=== PATIENT | female | born 1985 | race Caucasian/White ===

== ENCOUNTER 2018-05-16 07:30 | Emergency (ER) | payer MEDICAID, SELFPAY ==
[2018-05-16 07:31] VITALS: BP 164/80; PULSE 97; RESP 20; TEMP 36.4; O2SAT 98; BMI 44.9
--- NOTE | 2018-05-16 08:09 | ED.DCSUM_ITS ---
- ER Visit Summary Date of Service: 05/16/18 Chief Complaint: [] Foot injury, left History of Present Illness: The patient is a 33 F [] nonspecific twisting of her left foot yesterday comes in for evaluation her only complaint is left foot pain is a prior history of right lower extremity fracture with which she believes a hugo that has not been bothering her that occurred in 2013 she is now under the care of orthopedics she has no other complaints she denies any other areas of injury or concerns Physical Examination: [] 158/80 General, no distress resting comfortably HEENT is generally unremarkable The neck is supple no adenopathy Cardiovascular, regular rate and rhythm Lungs, clear bilateral Abdomen, soft nontender Extremities, no clubbing cyanosis or edema, she has no knee tib-fib or ankle pain she has pain over the midfoot she is able dorsi and plantarflex the foot she can move her toes the skin is intact sensation is intact pulses are intact there is no specific findings related to the foot Neurologic, awake alert answering questions appropriately moving all 4 extre mities X-rays were obtained we did discuss the concept of an occult injury she is treated with nonsteroidals X-rays per radiology were negative for all again of explained to the concept of an occult injury, she is placed in a walking boot, limited to no weightbearing, crutches Naprosyn for pain she is referred to Dr. Encinas orthopedics and return for change in symptoms Test Results: [] Emergency Department Course and Treatment: [] Treatment Plan: [] Disposition: [] Home stable Impression: [] Left foot injury This note was generated with [employer] ([employer] dictation software. It may contain incorrect words, spelling, and punctuation that were not noted in review of the chart prior to signing ED Disposition - Plan for ED Patient: Chief Complaint: Lower Extremity Injury Referrals: Graeme Mclean DO [Primary Care Provider] -
[2018-05-16] MEDS: Naproxen 500 MG Tablet PO (08:10)
--- NOTE | 2018-05-16 08:11 | RAD_ITS ---
STUDY: X-RAY - LEFT FOOT CLINICAL: Female, 33 years old. Pain along the top of the foot. TECHNIQUE: 3 view(s) of the foot. COMPARISON: None. FINDINGS: There is a plantar calcaneal spur. Normal visualized subtalar, talonavicular, calcaneocuboid, tarsal and tarsometatarsal articulations. Normal metatarsi. Normal metatarsophalangeal joint of the great toe. Normal tibial and fibular sesamoid bones. Normal interphalangeal joint of the great toe. Normal phalanges of the great toe. Normal second through fifth metatarsophalangeal joints. Normal interphalangeal joints and phalanges of the lesser toes. The soft tissue structures are unremarkable. RAD/Foot min 3 Views IMPRESSION: Normal x-ray examination of the foot. Electronically Signed: Ousmane Goff MD at 8:32 EST Tel [phone], Service support ,
--- NOTE | 2018-05-16 09:58 | ED.DEP ---
ED Disposition - Plan for ED Patient: Chief Complaint: Lower Extremity Injury Instructions: ED Sprain Foot Prescriptions: Naproxen [Naprosyn] 500 mg PO BID PRN #20 tab Referrals: Graeme Mclean DO [Primary Care Provider] - Esdras Encinas DO [STAFF PHYSICIAN] -
[2018-05-16 10:28] VITALS: BP 115/67; PULSE 78; RESP 18; O2SAT 99
--- OUTSIDE RECORDS SUMMARY | 2018-07-09 07:52 | XMS RPT_ITS ---
:1985 Author Organization OHIP Care Team Providers Name Role Phone Graeme Mclean Primary Care Unavailable Gregory Vance Attending Unavailable SADE GOMES Attending Unavailable PAUL MOORE (KIRT) Referring Unavailable SADE GOMES Referring Unavailable SHERRY SEO Attending Unavailable *SELF, REFERRED Referring Unavailable UNKNOWN, PCP Primary Care Unavailable PROBLEMS PROBLEMS DATE TYPE CONDITION / CODE ATTENDING STATUS SOURCE 11/10/2017 Active Ingrowing nail / NA Active [facility] L60.0(ICD-10) [facility] [place] Rep[facility] 11/10/2017 Active Other specified NA Active [facility] symptoms and signs [facility] [place] involving the Repository circulatory and respiratory systems / R09.89(ICD-10) 11/10/2017 Active Nicotine NA Active [facility] dependence, [facility] [place] unspecified, Repository uncomplicated / F17.200(ICD-10) PROCEDURES PROCEDURES No Procedure Records FoundRESULTS RESULTS EMERGENCY DEPARTMENT Observed: 05/16/2018 Status: F Source: [place] SUMMARY 4:21 PM [facility] REPOSITORY [facility] Medical Records Department [address] [place] [address] Emergency Department Summary 05/16/18 0807 MR#: [id number] Acct: [id number] Name: MUSTAPHA FUENTES Rep #: [id number] : 1985 33 From: Gregory Vance MD PCP: Gareme Mclean DO Status: DEP ER - ER Visit Summary Date of Service: 05/16/18 Chief Complaint: [] Foot injury, left History of Present Illness: The patient is a 33 F [] nonspecific twisting of her left foot yesterday comes in for evaluation her only complaint is left foot pain is a prior history of right lower extremity fracture with which she believes a hugo that has not been bothering her that occurred in 2013 she is now under the care of orthopedics she has no other complaints she denies any other areas of injury or concerns Physical Examination: [] 158/80 General, no distress resting comfortably HEENT is generally unremarkable The neck is supple no adenopathy Cardiovascular, regular rate and rhythm Lungs, clear bilateral Abdomen, soft nontender Extremities, no clubbing cyanosis or edema, she has no knee tib-fib or ankle pain she has pain over the midfoot she is able dorsi and plantarflex the foot she can move her toes the skin is intact sensation is intact pulses are intact there is no specific findings related to the foot Neurologic, awake alert answering questions appropriately moving all 4 extremities X-rays were obtained we did discuss the concept of an occult injury she is treated with nonsteroidals X-rays per radiology were negative for all again of explained to the concept of an occult injury, she is placed in a walking boot, limited to no weightbearing, crutches Naprosyn for pain she is referred to Dr. Encinas orthopedics and return for change in symptoms Test Results: [] Emergency Department Course and Treatment: [] Treatment Plan: [] Disposition: [] Home stable Impression: [] Left foot injury This note was generated with [employer] dictation software. It may contain incorrect words, spelling, and punctuation that were not noted in review of the chart prior to signing ED Disposition - Plan for ED Patient: Chief Complaint: Lower Extremity Injury Referrals: Graeme Mclean, [Primary Care Provider] - What to do if you have Problems For any increased pain, shortness of breath, bleeding, nausea or vomiting, chest pain, or any unexpected problems, contact your Primary Care Provider. Call [facility] ([phone]) or report to the closest Emergency Room. Call 911 if necessary. 05/16/18 1621 <Electronically signed by Gregory Vance MD> Date Gregory Vance MD Cosigner Signature (If Indicated): Date CC: Graeme Mclean DO DISCHARGE INSTRUCTION Observed: 05/16/2018 Status: F Source: [place] 9:59 AM [facility] REPOSITORY [facility] Medical Records Department [address] [place] [address] Discharge Instruction 05/16/1858 MR#: [id number] Acct: [id number] Name: MUSTAPHA FUENTES Rep #: [id number] : 1985 33 From: Gregory Vance MD PCP: Graeme Mclean DO Status: REG ER ED Disposition - Plan for ED Patient: Chief Complaint: Lower Extremity Injury Instructions: ED Sprain Foot Prescriptions: Naproxen [Naprosyn] 500 mg PO BID PRN #20 tab Referrals: Graeme Mclean DO [Primary Care Provider] - Esdras Encinas DO [STAFF PHYSICIAN] - What to do if you have Problems For any increased pain, shortness of breath, bleeding, nausea or vomiting, chest pain, or any unexpected problems, contact your Primary Care Provider. Call [facility] ([phone]) or report to the closest Emergency Room. Call 911 if necessary. 05/16/18 0959 <Electronically signed by Gregory Vance MD> Date Gregory Vance MD Cosigner Signature (If Indicated): Date CC: Graeme Mclean DO FOOT MIN 3 VIEWS Observed: 05/16/2018 Status: F Source: [place] 8:05 AM [facility] REPOSITORY [facility] Imaging Services [address] [place] [address] Foot min 3 Views MR#: [id number] Acct: [id number] Name: MUSTAPHA FUENTES Rep #: [id number] : 1985 F 33 From: Ousmane Goff MD PCP: Graeme Mclean DO Status: REG ER Study: Foot min 3 Views Date of Exam: 05/16/18 Exam# [id number] Ordering Dr: Gregory Vance MD STUDY: X-RAY - LEFT FOOT CLINICAL: Female, 33 years old. Pain along the top of the foot. TECHNIQUE: 3 view(s) of the foot. COMPARISON: None. FINDINGS: There is a plantar calcaneal spur. Normal visualized subtalar, talonavicular, calcaneocuboid, tarsal and tarsometatarsal articulations. Normal metatarsi. Normal metatarsophalangeal joint of the great toe. Normal tibial and fibular sesamoid bones. Normal interphalangeal joint of the great toe. Normal phalanges of the great toe. Normal second through fifth metatarsophalangeal joints. Normal interphalangeal joints and phalanges of the lesser toes. The soft tissue structures are unremarkable. RAD/Foot min 3 Views IMPRESSION: Normal x-ray examination of the foot. Electronically Signed: Ousmane Goff MD at 8:32 EST Tel [phone], Service support , CC: MD Armaan Vance; Graeme Mclean DO Wheelage Clerk: Signed PROGRESS Observed: 10/28/2017 Status: COMPLETED Source: [place] 8:10 AM [facility] REPOSITORY HNO ID: [id number] Author: Sade Gomes Service: (none) Author Type: Physician Type: Progress Notes Filed: 10/28/2017 8:46 AM Note Text: ? Sade Gomes DPM Department of Podiatry [address] [facility] [address] Dept: [phone] Dept 10/28/2017 Initial Podiatric Office Visit: HPI: Mustapha Fuentes is a 32 year old female. Patient presents with ingrown toenail, L great toe. Patient reports tenderness/soreness to L toe to the touch that started about 2-3 weeks ago. Denies drainage and swelling. Slight redness noted. Patient was seen in UC 1 wk ago and prescribed Keflex 500 mg TID x10 days, which she reports no difference in symptoms pain. Patient reports history of ingrown toenails that she treated herself with epsom salt soaks and would trim corner with no prior complications. Patient reports hx of numbness to feet and PCP ran blood work which showed vit B def. Patient has been taking vitamins and feeling has since returned. Patient denies being diabetic. Patient smokes cigarettes, 1-2 ppd. PCP: Graeme Mclean DO No past medical history on file. Current Outpatient Prescriptions: cephALEXin (KEFLEX) 500 mg capsule Take 1 capsule by mouth three times daily for 10 days. gabapentin (NEURONTIN) 100 mg capsule Take 100 mg by mouth three times daily. NORETH A-ET ESTRA/FE FUMARATE (MICROGESTIN FE 07/03, 28, ORAL) Take by mouth. LORazepam (ATIVAN) 1 mg tablet Take 1 mg by mouth as needed. erythromycin ophthalmic ointment Use 1 application in the right eye daily at bedtime. (Patient not taking: Reported on 10/20/2017 ) amoxicillin 500 mg capsule Take 1 capsule by mouth three times daily. (Patient not taking: Reported on 10/20/2017 ) No current facility-administered medications for this visit. ALLERGIES Allergen Reactions - Codeine Itching - Vicodin [Hydrocodon* Itching No past surgical history on file. No family history on file. Social History Marital status: Spouse name: Years of education: Number of children: Social History Main Topics Smoking status: Current Every Day Smoker Packs/day: 0.00 Years: 0.00 Smokeless tobacco: Never Used REVIEW OF SYSTEMS: CONSTITUTIONAL: No fevers, chills, nightsweats, unintended weight loss HEENT: Denies frequent or severe heaches, nasal congestion/sinus symptoms, problematic allergy problems. EYES: No diplopia or blurry vision. CARDIOVASCULAR: No chest pain, dyspnea, palpitations, orthopnea, PND, ankle edema. PULM: No dyspnea, unexplained cough. GI: No dysphagia/odynophagia, problematic reflux, constipation, diarrhea, changes in stool habits, hematochezia, melena. : No new urinary complaints, including dysuria, gross hematuria or pyuria. NEURO: No new balance problems, peripheral weakness/paresthesias or numbness of concern. MUSC-SKEL: No new joint pain, swelling, or erythema. PSY: No concerns regarding depression, anxiety or panic. INTEGUMENTARY: No new skin changes (rash, new or changing mole, new growth) Physical Exam: Constitutional: Pt is a well developed 32 year old female who is alert, oriented and cooperative Eyes: Following during examination. No redness or drainage. Respiratory: RR normal and nonlabored. Even breathing. No evidence of distress or shortness of breath. Psychology: Patient is engaged during conversation. Normal affect and mood. Does not appear depressed or anxious during encounter. Vascular: Dorsalis pedis and posterior tibial pulses palpable, L Capillary Fill time < 5 seconds to digits 1-5, L Skin temperature warm to cool proximal to distal, L Hair growth decreased to digits Neurological: intact light touch/epicritic sensation Dermatological: Ingrown toenail to L hallux toenail. There is no redness noted. Mild pain with palpation. Webspaces clean and dry 1-4 b/l. Skin appears well hydrated and supple. good color, texture, turgor. Callosities absent.Open lesions absent. Musculoskeletal/Orthopaedic: Patient has pain to palpation of L hallux Foot type is neutral structurally AJ ROM is full with knee extended and flexed 1st MPJ is full when loaded and no pain or crepitus are noted with ROM. MTJ, STJ are full and free of pain and crepitus. +5/5 muscle strength dorsiflexion, plantarflexion, inversion, eversion b/l ASSESSMENT: (L60.0) Ingrown toenail (primary encounter diagnosis) Comment: Patient examined and informed of findings. Discussed thickening of L hallux toenail and no signs of major infections. Discussed options of avulsion vs matrixectomy vs monitor. Discussed risks of toenail procedure not limited to infection, pain, swelling, bleeding, painful scarring, recurrence, need for revised procedure. Patient wishes to just monitor. Plan: 1. Continue antibiotic and monitor (R09.89) Diminished pulses in lower extremity Comment: Discussed smoking and complications with circulation, especially since toes cool, if patient wishes to proceed with procedure. Discussed smoking cessation with patient Plan: 1. PVR - will call with results (F17.200) Smoker Comment: Discussed smoking cessation with patient. RTC as needed The documentation for this note was completed by Oksana Mendez Ma acting as scribe for Sade Gomes DPM. October 28, 2017 8:15 AM. I agree with the Chief Complaint, ROS, and Past Histories independently gathered by the clinical customer support advisor and the remaining scribed note accurately describes my personal service to the patient. Sade Gomes DPM CNOV Observed: 10/28/2017 Status: COMPLETED Source: [place] 7:55 AM [facility] REPOSITORY Office Visit (PODIWS) MUSTAPHA FUENTES ([id number]) 1985 F Date Time Provider Department 10/28/17 7:55 AM SADE GOMES [facility] During your visit today, we recorded the following information about you: Sade Gomes DPM 10/28/2017 8:46 AM Signed ? Sade Gomes DPM Department of Podiatry [address] [place] [address] Dept: [phone] Dept 10/28/2017 Initial Podiatric Office Visit: HPI: Mustapha Fuentes is a 32 year old female. Patient presents with ingrown toenail, L great toe. Patient reports tenderness/soreness to L toe to the touch that started about 2-3 weeks ago. Denies drainage and swelling. Slight redness noted. Patient was seen in UC 1 wk ago and prescribed Keflex 500 mg TID x10 days, which she reports no difference in symptoms pain. Patient reports history of ingrown toenails that she treated herself with epsom salt soaks and would trim corner with no prior complications. Patient reports hx of numbness to feet and PCP ran blood work which showed vit B def. Patient has been taking vitamins and feeling has since returned. Patient denies being diabetic. Patient smokes cigarettes, 1-2 ppd. PCP: Graeme Mclean DO No past medical history on file. Current Outpatient Prescriptions: cephALEXin (KEFLEX) 500 mg capsule Take 1 capsule by mouth three times daily for 10 days. gabapentin (NEURONTIN) 100 mg capsule Take 100 mg by mouth three times daily. NORETH A-ET ESTRA/FE FUMARATE (MICROGESTIN FE 07/03, , ORAL) Take by mouth. LORazepam (ATIVAN) 1 mg tablet Take 1 mg by mouth as needed. erythromycin ophthalmic ointment Use 1 application in the right eye daily at bedtime. (Patient not taking: Reported on 10/20/2017 ) amoxicillin 500 mg capsule Take 1 capsule by mouth three times daily. (Patient not taking: Reported on 10/20/2017 ) No current facility-administered medications for this visit. ALLERGIES Allergen Reactions - Codeine Itching - Vicodin [Hydrocodon* Itching No past surgical history on file. No family history on file. Social History Marital status: Spouse name: Years of education: Number of children: Social History Main Topics Smoking status: Current Every Day Smoker Packs/day: 0.00 Years: 0.00 Smokeless tobacco: Never Used REVIEW OF SYSTEMS: CONSTITUTIONAL: No fevers, chills, nightsweats, unintended weight loss HEENT: Denies frequent or severe heaches, nasal congestion/sinus symptoms, problematic allergy problems. EYES: No diplopia or blurry vision. CARDIOVASCULAR: No chest pain, dyspnea, palpitations, orthopnea, PND, ankle edema. PULM: No dyspnea, unexplained cough. GI: No dysphagia/odynophagia, problematic reflux, constipation, diarrhea, changes in stool habits, hematochezia, melena. : No new urinary complaints, including dysuria, gross hematuria or pyuria. NEURO: No new balance problems, peripheral weakness/paresthesias or numbness of concern. MUSC-SKEL: No new joint pain, swelling, or erythema. PSY: No concerns regarding depression, anxiety or panic. INTEGUMENTARY: No new skin changes (rash, new or changing mole, new growth) Physical Exam: Constitutional: Pt is a well developed 32 year old female who is alert, oriented and cooperative Eyes: Following during examination. No redness or drainage. Respiratory: RR normal and nonlabored. Even breathing. No evidence of distress or shortness of breath. Psychology: Patient is engaged during conversation. Normal affect and mood. Does not appear depressed or anxious during encounter. Vascular: Dorsalis pedis and posterior tibial pulses palpable, L Capillary Fill time < 5 seconds to digits 1-5, L Skin temperature warm to cool proximal to distal, L Hair growth decreased to digits Neurological: intact light touch/epicritic sensation Dermatological: Ingrown toenail to L hallux toenail. There is no redness noted. Mild pain with palpation. Webspaces clean and dry 1-4 b/l. Skin appears well hydrated and supple. good color, texture, turgor. Callosities absent.Open lesions absent. Musculoskeletal/Orthopaedic: Patient has pain to palpation of L hallux Foot type is neutral structurally AJ ROM is full with knee extended and flexed 1st MPJ is full when loaded and no pain or crepitus are noted with ROM. MTJ, STJ are full and free of pain and crepitus. +5/5 muscle strength dorsiflexion, plantarflexion, inversion, eversion b/l ASSESSMENT: (L60.0) Ingrown toenail (primary encounter diagnosis) Comment: Patient examined and informed of findings. Discussed thickening of L hallux toenail and no signs of major infections. Discussed options of avulsion vs matrixectomy vs monitor. Discussed risks of toenail procedure not limited to infection, pain, swelling, bleeding, painful scarring, recurrence, need for revised procedure. Patient wishes to just monitor. Plan: 1. Continue antibiotic and monitor (R09.89) Diminished pulses in lower extremity Comment: Discussed smoking and complications with circulation, especially since toes cool, if patient wishes to proceed with procedure. Discussed smoking cessation with patient Plan: 1. PVR - will call with results (F17.200) Smoker Comment: Discussed smoking cessation with patient. RTC as needed The documentation for this note was completed by Oksana Mendez Ma acting as scribe for Sade Gomes DPM. October 28, 2017 8:15 AM. I agree with the Chief Complaint, ROS, and Past Histories independently gathered by the clinical customer support advisor and the remaining scribed note accurately describes my personal service to the patient. Sade Gomes DPM Referring Provider: PAUL MOORE) [[id number]] Allergies As of Date: 10/28/2017 Noted Allergy Reaction CODEINE 05/02/2013 9 - Itching VICODIN (HYDROCODONE-ACETAMINOPHE*05/02/2013 9 - Itching Date Reviewed: 10/28/2017 Reviewed by: Oksana Mendez Ma - Fully Assessed Reason for Visit: Ingrown Nail [765] Primary Visit Diagnosis:Ingrown toenail [L60.0] Other Visit Diagnoses:Diminished pulses in lower extremity [R09.89] Smoker [F17.200] Order(s):[facility] [[id number]] Order #: [id number] FUTURE Prescriptions as of 10/28/2017 Sig: CEPHALEXIN 500 MG CAPSULE Take 1 capsule by mouth three* GABAPENTIN 100 MG CAPSULE Take 100 mg by mouth three ti* MICROGESTIN FE 07/03 (28) ORAL Take by mouth. LORAZEPAM 1 MG TABLET Take 1 mg by mouth as needed. ERYTHROMYCIN 5 MG/GRAM (0.5 %* Use 1 application in the righ* Patient not taking: Reported on 10/20/2017 AMOXICILLIN 500 MG CAPSULE Take 1 capsule by mouth three* Patient not taking: Reported on 10/20/2017 Problem List As Of Date: 10/28/2017 (None) Encounter Status:Closed by SADE GOMES DPM on 10/28/17 PROGRESS Observed: 10/20/2017 Status: COMPLETED Source: [place] 12:33 PM [facility] REPOSITORY O ID: [id number] Author: Paul Moore (Kirt) Service: (none) Author Type: Physician Blindstitch [place] Type: Progress Notes Filed: 10/20/2017 1:09 PM Note Text: Subjective HPI Pt presents with left great toenail pain. She has had an ingrown toenail for 2 weeks. It has started to get painful and she noticed redness and swelling today. No fever or chills. No injury. Review of Systems Musculoskeletal: Left great ingrown toenail No past medical history on file. Current Outpatient Prescriptions: gabapentin (NEURONTIN) 100 mg capsule Take 100 mg by mouth three times daily. Disp: Rfl: NORETH A-ET ESTRA/FE FUMARATE (MICROGESTIN FE 07/03, , ORAL) Take by mouth. Disp: Rfl: LORazepam (ATIVAN) 1 mg tablet Take 1 mg by mouth as needed. Disp: Rfl: cephALEXin (KEFLEX) 500 mg capsule Take 1 capsule by mouth three times daily for 10 days. Disp: 30 capsule Rfl: 0 erythromycin ophthalmic ointment Use 1 application in the right eye daily at bedtime. (Patient not taking: Reported on 10/20/2017 ) Disp: 1.5 g Rfl: 0 amoxicillin 500 mg capsule Take 1 capsule by mouth three times daily. (Patient not taking: Reported on 10/20/2017 ) Disp: 30 capsule Rfl: 0 No current facility-administered medications for this visit. No past surgical history on file. No family history on file. Social History Substance Use Topics - Smoking status: Current Every Day Smoker - Smokeless tobacco: Never Used - Alcohol use Not on file BP 126/78 Pulse 78 Temp 36.8 ?C (98.2 ?F) (Tympanic) Resp 16 Wt 103.9 kg (229 lb) LMP 09/22/2017 Objective Physical Exam Constitutional: She is oriented to person, place, and time and well-developed, well-nourished, and in no distress. HENT: Head: Normocephalic and atraumatic. Cardiovascular: Normal rate, regular rhythm and normal heart sounds. Pulmonary/Chest: Effort normal and breath sounds normal. Musculoskeletal: Pt has erythema and swelling of the lateral toe adjacent to the toenail. No sign of paronychia. She has a mild ingrown toenail as well. Neurological: She is alert and oriented to person, place, and time. Skin: Skin is warm and dry. Psychiatric: Affect and judgment normal. Nursing note and vitals reviewed. ASSESSMENT/PLAN: 1. Ingrown toenail - ICD9: 703.0, ICD10: L60.0 Started patient on keflex and referred to podiatry, Dr Gomes next week. If worsening recommended here or ED. She is comfortable with this plan. MARAL Flores Observed: 10/20/2017 Status: COMPLETED Source: [place] 12:30 PM [facility] REPOSITORY Office Visit (WSTR) KANDISMUSTAPHA ([id number]) 1985 F Date Time Provider Department 10/20/17 12:30 PM PAUL MOORE) [facility] During your visit today, we recorded the following information about you: Temperature Pulse Respiration Blood pressure 98.2 degrees 78/minute 16/minute 126/78 Weight Last Period 103.9 kg 09/22/17 Paul Moore) 10/20/2017 1:09 PM Signed Subjective HPI Pt presents with left great toenail pain. She has had an ingrown toenail for 2 weeks. It has started to get painful and she noticed redness and swelling today. No fever or chills. No injury. Review of Systems Musculoskeletal: Left great ingrown toenail No past medical history on file. Current Outpatient Prescriptions: gabapentin (NEURONTIN) 100 mg capsule Take 100 mg by mouth three times daily. Disp: Rfl: NORETH A-ET ESTRA/FE FUMARATE (MICROGESTIN FE 07/03, , ORAL) Take by mouth. Disp: Rfl: LORazepam (ATIVAN) 1 mg tablet Take 1 mg by mouth as needed. Disp: Rfl: cephALEXin (KEFLEX) 500 mg capsule Take 1 capsule by mouth three times daily for 10 days. Disp: 30 capsule Rfl: 0 erythromycin ophthalmic ointment Use 1 application in the right eye daily at bedtime. (Patient not taking: Reported on 10/20/2017 ) Disp: 1.5 g Rfl: 0 amoxicillin 500 mg capsule Take 1 capsule by mouth three times daily. (Patient not taking: Reported on 10/20/2017 ) Disp: 30 capsule Rfl: 0 No current facility-administered medications for this visit. No past surgical history on file. No family history on file. Social History Substance Use Topics - Smoking status: Current Every Day Smoker - Smokeless tobacco: Never Used - Alcohol use Not on file BP 126/78 Pulse 78 Temp 36.8 ?C (98.2 ?F) (Tympanic) Resp 16 Wt 103.9 kg (229 lb) LMP 09/22/2017 Objective Physical Exam Constitutional: She is oriented to person, place, and time and well-developed, well-nourished, and in no distress. HENT: Head: Normocephalic and atraumatic. Cardiovascular: Normal rate, regular rhythm and normal heart sounds. Pulmonary/Chest: Effort normal and breath sounds normal. Musculoskeletal: Pt has erythema and swelling of the lateral toe adjacent to the toenail. No sign of paronychia. She has a mild ingrown toenail as well. Neurological: She is alert and oriented to person, place, and time. Skin: Skin is warm and dry. Psychiatric: Affect and judgment normal. Nursing note and vitals reviewed. ASSESSMENT/PLAN: 1. Ingrown toenail - ICD9: 703.0, ICD10: L60.0 Started patient on keflex and referred to podiatry, Dr Gomes next week. If worsening recommended here or ED. She is comfortable with this plan. Paul Moore PA-C Referring Provider: SELF [[id number]] Allergies As of Date: 10/20/2017 Noted Allergy Reaction CODEINE 05/02/2013 9 - Itching VICODIN (HYDROCODONE-ACETAMINOPHE*05/02/2013 9 - Itching Date Reviewed: 10/20/2017 Reviewed by: Keira Tsang Ma - Fully Assessed Reason for Visit: Toe Pain (Big) [1588] Cmt: left big toe red and swollen x 2 weeks Primary Visit Diagnosis:Ingrown toenail [L60.0] Order(s):cephALEXin (KEFLEX) 500 mg capsuleTake 1 capsule by mouth three times daily for 10 days.Disp: 30 capsuleRfl: 0 Prescriptions as of 10/20/2017 Sig: GABAPENTIN 100 MG CAPSULE Take 100 mg by mouth three ti* MICROGESTIN FE 07/03 (28) ORAL Take by mouth. LORAZEPAM 1 MG TABLET Take 1 mg by mouth as needed. CEPHALEXIN 500 MG CAPSULE Take 1 capsule by mouth three* ERYTHROMYCIN 5 MG/GRAM (0.5 %* Use 1 application in the righ* Patient not taking: Reported on 10/20/2017 AMOXICILLIN 500 MG CAPSULE Take 1 capsule by mouth three* Patient not taking: Reported on 10/20/2017 Problem List As Of Date: 10/20/2017 (None) Prescriptions ordered this encounter Disp Refills Start End CEPHALEXIN 500 MG CAPSULE 30 c* 0 10/20/2017 10/30/2017 Route: ORAL Sig: Take 1 capsule by mouth three times daily for 10 days. Encounter Status:Closed by PAUL MOORE PA-C on 10/20/17 ALLERGIES ALLERGIES DATE TYPE / CODE NAME / CODE REACTION SEVERITY SOURCE 05/16/2018 Drug hydrocodone Itching Unknown [facility] All[facility]/416 bitartrate/[id number] [facility] [id number]([place] [address](RXNO) [facility] ED CT) Repository 05/16/2018 Drug codeine/[id number] Itching Unknown [facility] Allergy/416 (RXNORM) [facility] 200380([facility] ED CT) Repository 05/02/2013 DRUG CODEINE ITCHING [facility] INGREDI/[address] [place] 987862(SNOM Repository ED CT) 05/02/2013 DRUG/[id number] HYDROCODONE-ACETAM ITCHING [facility] 003(SNOMED INOPHEN [address] [place] [address]) Repository ENCOUNTERS ENCOUNTERS ADMIT/DISCHARGE ACCOUNT ADMITTING ENCOUNTER LOCATION SOURCE NUMBER CLASS 05/16/2018/05/16/20 [id number] [place] [facility] ing:ED Repository 02/23/2018 [id number] Ambulatory [address] [place] [address] Repository 11/10/2017/11/11/19 [id number] Ambulatory [address] [place] Repository 10/28/2017/11/02/19 [id number] Ambulatory [address] Repository 10/20/2017/10/22/19 [id number] Ambulatory [address] Repository PAYERS PAYERS ENCOUNTER GUARANTOR PAYER SUBSCRIBER SOURCE 05/16/2018 MUSTAPHA [id number] Primary Insurance:[facility] Jaime DIASAKEDOB: [facility] [address]Kso: Number: [id number] [id number] Repository (HP) Date:[id number] [address]SP: 05/16/2018 Secondary NOT GIVENUNK Grace Insurance:SELF PAY [facility] Number: Effective Repository Date:2018-05-16 02/23/2018 MUSTAPHA RHOADESOB: Primary MUSTAPHA RHOADESOB: [place] [id number] Insurance:[employer] [id number] [address] Repository [place] [place] Number: [place] [id number]: [phone] [id number] [id number]: () Date:Plan [phone] () Name:[address] [place] [id number]:
== END 2018-05-16 10:29 | disposition home or self-care (01) ==
PROVIDERS: Emergency Provider Emergency Medicine; Family Provider Preventive Medicine Occupational Medicine; PCP Preventive Medicine Occupational Medicine
DX: S99.922A Unspecified injury of left foot, initial encounter (principal); X50.1XXA Overexertion from prolonged static or awkward postures, initial encounter; Y93.89 Activity, other specified; Y92.89 Other specified places as the place of occurrence of the external cause; Y99.8 Other external cause status
CPT/HCPCS: 73630; 99284